=== PATIENT | male | born 2000 | race Caucasian/White ===

== ENCOUNTER 2022-09-27 13:15 | Emergency (ER) | payer OTHER ==
[2022-09-27 13:29] VITALS: BP 129/65; PULSE 62; RESP 18; TEMP 97.9; BMI 28.1
[2022-09-27] MEDS ORDERED: predniSONE 20 MG TABLET (UD) PO ONE (13:38)
[2022-09-27] MEDS ORDERED: predniSONE 20 MG TABLET (UD) ONE (13:41)
== END 2022-09-27 13:54 | disposition home or self-care (01) ==
LOC: JER 13:15 → JERFT 13:15
DX: R21 Rash and other nonspecific skin eruption (principal); L50.9 Urticaria, unspecified
CPT/HCPCS: 99283-25